=== PATIENT | female | born 1955 | race Caucasian/White ===

== ENCOUNTER 2019-03-19 07:54 | Day surgery (SDC) | payer MEDICARE ==
[2019-03-19] MEDS ORDERED: PROPOFOL 200 MG/20 ML BOTTLE IV ONE (07:55)
[2019-03-19] MEDS ORDERED: PHENYLEPHRINE 10 MG/1 ML VIAL IV ONE (07:55)
[2019-03-19] MEDS ORDERED: LIDOCAINE HCL 2% 20 ML VIAL IJ ONE (07:55)
[2019-03-19] MEDS ORDERED: IV NORMAL SALINE 1000 ML BAG IV ONE (07:55)
[2019-03-19 08:46] LABS: BASOPHILS % (AUTO) 0.1 % (0.0-2.0); EOSINOPHILS % (AUTO) 0.2 % (0.0-7.0); HEMATOCRIT 47.1 % (31.2-41.9); HEMOGLOBIN 15.9 g/dL (10.9-14.3); LYMPHOCYTES # (AUTO) 1.4 K/uL (20.0-40.0); LYMPHOCYTES % (AUTO) 8.8 % (20.5-51.5); MEAN CORPUSCULAR HEMOGLOBIN 31.8 uug (24.7-32.8); MEAN CORPUSCULAR HGB CONC 34 g/dL (32.3-35.6); MEAN CORPUSCULAR VOLUME 94.2 fL (75.5-95.3); MONOCYTES # (AUTO) 0.5 K/uL (2.0-10.0); MONOCYTES % (AUTO) 3.1 % (0.0-11.0); NEUTROPHILS # (AUTO) 13.5 K/uL (1.8-8.9); NEUTROPHILS % (AUTO) 87.8 % (38.5-71.5); PLATELET COUNT (AUTO) 230 K/uL (179-408); WHITE BLOOD COUNT (AUTO) 15.4 K/uL (3.8-11.8)
[2019-03-19 09:11] LABS: *BLOOD, URINE 2+ (NEGATIVE); *CLARITY,URINE CLOUDY (CLEAR); *KETONES,URINE TRACE (NEGATIVE); *UROBILINOGEN,URINE 0.2 E.U./dl (NORMAL); LEUKOCYTE ESTERASE ,URINE NEGATIVE (NEGATIVE); NITRITE, URINE NEGATIVE (NEGATIVE); UGLUCOSE NEGATIVE (NEGATIVE)
[2019-03-19 09:18] LABS: *BILIRUBIN,URIN 1+ (NEGATIVE); *COLOR,URINE DARK YELLOW (YELLOW)
[2019-03-19 09:26] LABS: BACTERIA,URINE MANY /HPF (NONE SEEN); SQUAMOUS EPITHELIAL CELL,UR MANY /HPF (NONE SEEN)
[2019-03-19 09:29] LABS: MUCUS,URINE MODERATE /LPF (0-FEW)
[2019-03-19 09:39] LABS: CREATININE 0.9 mg/dL (0.6-1.3); POTASSIUM 4.3 mmol/L (3.5-5.1)
== END 2019-03-19 12:30 | disposition home or self-care (01) ==
LOC: DS 07:54
PROVIDERS: ATTEND Surgery
DX: Z12.11 Encounter for screening for malignant neoplasm of colon (principal); R10.13 Epigastric pain; K25.4 Chronic or unspecified gastric ulcer with hemorrhage; K44.9 Diaphragmatic hernia without obstruction or gangrene; K63.5 Polyp of colon; K29.70 Gastritis, unspecified, without bleeding; K64.8 Other hemorrhoids; E78.00 Pure hypercholesterolemia, unspecified; Z87.891 Personal history of nicotine dependence; Z72.89 Other problems related to lifestyle; Z82.49 Family history of ischemic heart disease and other diseases of the circulatory system; Z83.3 Family history of diabetes mellitus; Z80.0 Family history of malignant neoplasm of digestive organs; Z98.890 Other specified postprocedural states; Z86.010 Personal history of colon polyps
CPT/HCPCS: 36415; 43239; 45380; 80048; 81000; 81001; 85025; 85730; 87086; 93005; J2370; J3490; J7120; 88342; A4217; A4663; J7030